=== PATIENT | male | born 1960 | race Caucasian/White ===

== ENCOUNTER 2024-10-11 11:52 | Emergency (ER) | payer OTHER ==
[2024-10-11 12:13] VITALS: BP 142/94; RESP 18; TEMP 98; O2SAT 95
[2024-10-11 12:18] VITALS: PULSE 92
--- NOTE | 2024-10-11 12:23 | ERPHSYRPT ---
- History of Present Illness Time Seen by Provider: 10/11/24 12:19 Source: patient Exam Limitations: no limitations Patient Subjective Stated Complaint: C/O head injury/laceration that happened approx 15 minutes prior to arriving in the ER today. Patient was out fishing, w alking up a small incline, slipped, hit his forehead on a rock. Did not lose conciousness. Triage Nursing Assessment: Patient ambulated back to ER without difficulties. He is alert and oriented; anxious. Small amount of active bleeding noted from forehead laceration. Laceration is in a "<" shape. One side measures 1.5cm in length and the other side measures 1cm in length. Area cleansed with sodium cholride and hibiclens. Physician History: C/O head injury/laceration that happened approx 15 minutes prior to arriving in the ER today. Patient was out fishing, walking up a small incline, slipped, hit his forehead on a rock. Did not lose conciousness. Timing/Duration: today Severity: mild Associated Symptoms: denies symptoms Allergies/Adverse Reactions: No Known Drug Allergies Allergy (Verified 10/11/24 11:59) Home Medications: Citalopram Hydrobromide 20 mg* [ceLEXa 20 MG] 20 mg PO DAILY 10/11/24 [History] Levothyroxine Sodium 200 mcg PO DAILY 10/11/24 [History] Losartan/Hydrochlorothiazide [Losartan-Hctz 50-12.5 mg Tab] 1 tab PO DAILY 10/11/24 [History] Simvastatin 20Mg [Zocor 20Mg] 20 mg PO HS 10/11/24 [History] Hx Tetanus, Diphtheria Vaccination/Date Given: Yes Hx Influenza Vaccination/Date Given: No Hx Pneumococcal Vaccination/Date Given: No Immunizations Up to Date: Yes Travel Risk - International Travel Have you traveled outside of the country in past 3 weeks: No - Emerging Infectious Disease Are you exhibiting symptoms associated with any current EIDs: No - Review of Systems Constitutional: No Symptoms Eyes: No Symptoms Ears, Nose, & Throat: No Symptoms Respiratory: No Symptoms Cardiac: No Symptoms Abdominal/Gastrointestinal: No Symptoms Genitourinary Symptoms: No Symptoms Musculoskeletal: No Symptoms Skin: Other (laceration on mid forehead) - Past Medical History Pertinent Past Medical History: Yes ENT History: Cataracts Cardiac History: High Cholesterol, Hypertension Endocrine Medical History: Thyroid Cancer Psycho-Social History: Other Other Medical History: PTSD - Past Surgical History Past Surgical History: Yes Gastrointestinal: Appendectomy Other Surgical History: THYROID REMOVED DUE TO CA, FIBROID REMOVED FROM CHEST - Social History Smoking Status: Never smoker Exposure to second hand smoke: No Drug Use: none - Social Determinants of Health Will the patient participate in the screening: Yes Do you worry about a steady place to live?: No Do you have any problems with any of the following?: No known problems In the past 12 months,have you had to go without utilities?: No Transportation Issues: No Has anyone in your support network made you feel unsafe?: No Have you or anyone in your house had to go without enough: No - Nursing Vital Signs Nursing Vital Signs: Initial Vital Signs Temperature 98 F 10/11/24 11:59 Pulse Rate 95 H 10/11/24 11:59 Respiratory Rate 18 10/11/24 11:59 Blood Pressure 142/94 10/11/24 11:59 O2 Sat by Pulse Oximetry 95 10/11/24 11:59 Pain Scale Pain Intensity 3 - Physical Exam General Appearance: no apparent distress Eye Exam: PERRL/EOMI Ears, Nose, Throat Exam: normal ENT inspection Neck Exam: normal inspection Respiratory Exam: normal breath sounds Cardiovascular Exam: regular rate/rhythm Gastrointestinal/Abdomen Exam: soft Extremity Exam: normal inspection Neurologic Exam: alert, oriented x 3 Skin Exam: normal color, laceration SpO2 Interpretation: normal SpO2: 95 Procedures - Laceration/Wound Repair Frontal Time of Procedure: 12:21 Wound Location: forehead Wound Length (cm): 5 Wound's Depth, Shape: superficial Wound Explored: clean Irrigated: Yes Hibiclens Prep: Yes Wound Repaired With: Steri-strips, Dermabond - Course Nursing assessment & vital signs reviewed: Yes Ordered Tests: Active Orders 24 hr Category Date Time Status Wound Care STAT Care 10/11/24 12:09 Active - Progress Progress: improved Counseled pt/family regarding: diagnosis, need for follow-up Medical Desision Making - Diagnostic Testing Diagnostic test were ordered, analyzed, and reviewed by me: No - Risk of complications Minimal Risk: Minimal risk of morbidity - Departure Departure Disposition: Home Clinical Impression: Laceration of forehead without complication Qualifiers: Encounter type: initial encounter Qualified Code(s): S01.81XA - Laceration without foreign body of other part of head, initial encounter Condition: Stable Critical Care Time: No Instructions: Laceration Repair With Glue (DC), Wound Care (DC) Additional Instructions: Discharge/Care Plan SANTINO MCMULLEN was seen on 10/11/24 in the Emergency Room. The patient was counseled regarding Diagnosis,Lab results, Imaging studies, need for follow up and when to return to the Emergency Room. Prescriptions given: Discharge Note I have spoken with the patient and/or caregivers. I have explained the patient's condition, diagnosis and treatment plan based on the information available to me at this time. I have answered the patient's and/or caregiver's questions and addressed any concerns. The patient and/or caregivers have as good understanding of the patient's diagnosis, condition and treatment plan as can be expected at this point. The vital signs have been stable. The patient's condition is stable and appropriate for discharge from the emergency department. The patient will pursue further outpatient evaluation with the primary care physician or other designated or consulting physician as outlined in the discharge instructions. The patient and/or caregivers are agreeable to this plan of care and follow-up instructions have been explained in detail. The patient and/or caregivers have received these instruction. The patient/and or caregivers are aware that any significant change in condition or worsening of symptoms should prompt an immediate return to this or the closest emergency department or call 911. SANTINO MCMULLEN was seen on 10/11/24 n the Emergency Room. At that time you were treated for an emergent condition, during your visit Laboratory, Radiology and/or other procedures may have been ordered. It is very important that you follow-up with your Primary Care Physician within the next 24-48 hours to review your Emergency Room visit and the final results of testing that was ordered. Some test results such as Urine Cultures, Blood Cultures, and other cultures if ordered will not be finalized for 24-48 hours. If you do not have a Primary Care Provider please call the medical records department at [phone] to obtain a copy of your results or you may sign into our patient portal to obtain these results by visiting us @ [email or web address] and completing the following steps: 1. Click on the Patient Portal link 2. Click the Patient Self Enrollment Link to complete the enrollment form and entering your 3. Once the enrollment form is completed you will receive an email with a tempor jelani ID and password at the email address you provided. 4. Next choose a user name and password. Your user name must be at least 4 characters long and your password must be at least 4 characters long. 5. Choose a security question from the list and provide your answer to the question. If you already have signed into the Health Portal you may access your Health Care Information 21/05 by the following steps: 1. Login to our website @ [email or web address] 2. Enter your original user name and password. FAQS The [facility] Health Portal is an online tool that contains your Lab Results, Radiology Reports, Visit History, Discharge Instructions and Health Summary Lab and Radiology Results will not be available for 72 hours on the portal. The Portal is a secure site, passwords are encryted and URLs are re-written so they cannot be copied and pasted. You and authorized family members are the only ones who can access your Portal. Also there is a timeout feature that protects your information if you leave the Portal page open. If you have technical difficulty please use the Contact Us link on the page this will allow you to submit any questions you have regarding the Portal or you may contact the Medical Record Department at [phone] ext [phone].
== END 2024-10-11 12:36 | disposition home or self-care (01) ==
LOC: ED 11:52
DX: S01.91XA Laceration without foreign body of unspecified part of head, initial encounter (principal); W01.0XXA Fall on same level from slipping, tripping and stumbling without subsequent striking against object, initial encounter
CPT/HCPCS: 12002; 99281; 99282